=== PATIENT | female | born 1990 | race Asian ===

== ENCOUNTER 2017-11-24 00:28 | Inpatient (IN) | payer SELFPAY ==
[~2017-11-24] VITALS: Ht 154.9 cm; Wt 77.1 kg
[2017-11-24] MEDS ORDERED: LR 500 ML IV ONE (00:55)
[2017-11-24] MEDS ORDERED: LR 1,000 ML IV ONE (00:55)
[2017-11-24] MEDS ORDERED: LR 1,000 ML IV SCH ×2 (00:55→18:38)
[2017-11-24] MEDS ORDERED: OXYTOCIN/NORMAL SALINE 1,000 ML IV SCH (00:55)
[2017-11-24] MEDS ORDERED: NALBUPHINE HCL 10 MG/ML AMP IVP PRN (01:00)
[2017-11-24] MEDS ORDERED: TERBUTALINE SULFATE 1 MG/ML VIAL SUBCUT ONE (01:00)
[2017-11-24 02:20] LABS: HEMOGLOBIN 13.8 g/dL (12.0-16.0); MEAN CORPUSCULAR HEMOGLOBIN 30 pg (27-31); MEAN CORPUSCULAR HGB CONC 34 % (32-36); MEAN CORPUSCULAR VOLUME 90 fL (79.0-98.0)
[2017-11-24 02:22] LABS: EOSINOPHILS # (AUTO) 0.2 K/uL (0.0-0.4); EOSINOPHILS % (AUTO) 1.4 % (0.0-4.0); HEMATOCRIT 41.2 % (36-48); LYMPHOCYTES # (AUTO) 2.2 K/uL (1.0-5.5); LYMPHOCYTES % (AUTO) 18.6 % (20.5-51.5); MONOCYTES # (AUTO) 0.8 K/uL (0.0-1.0); MONOCYTES % (AUTO) 6.8 % (1.7-9.3); NEUTROPHILS # (AUTO) 8.5 K/uL (1.8-7.7); NEUTROPHILS % (AUTO) 73.2 % (40.0-70.0); PLATELET COUNT (AUTO) 312 K/uL (130-430); RED BLOOD CELL COUNT(AUTO) 4.56 MIL/uL (4.2-6.2); WHITE BLOOD COUNT (AUTO) 11.7 K/uL (4.8-10.8)
[2017-11-24 02:48] VITALS: BP_SYST 99
[2017-11-24] MEDS ORDERED: AMPICILLIN SODIUM 2 GM in NS 100 ML IV ONE (06:30)
[2017-11-24] MEDS ORDERED: DINOPROSTONE 10 MG SUPP VG ONE (08:45)
[2017-11-24] MEDS ORDERED: AMPICILLIN SODIUM 1 GM in NS 50 ML IV SCH (10:30)
[2017-11-24] MEDS ORDERED: AMPICILLIN SODIUM 2 GM VIAL ONE (11:56)
[2017-11-24] MEDS ORDERED: AMPICILLIN SODIUM 1 GM VIAL ONE (13:29)
[2017-11-24] MEDS ORDERED: CEFAZOLIN 2 GM IVPB PREMIX 50 ML IV ONE (17:00)
[2017-11-24] MEDS ORDERED: NS IRRIG SOLN 1000 ML IR ONE (17:45)
[2017-11-24] MEDS ORDERED: LR 1,000 ML IV.SOLN IV ONE (17:45)
[2017-11-24] MEDS ORDERED: METHYLERGONOVINE MALEATE 0.2 MG/ML AMP IM ONE (17:45)
[2017-11-24] MEDS ORDERED: BUPIVACAINE /DEX PF 0.75% SPINAL 2 ML AMP INJ ONE (17:45)
[2017-11-24] MEDS ORDERED: OXYTOCIN 10 UNIT/ML VIAL IV ONE (17:45)
[2017-11-24] MEDS ORDERED: ONDANSETRON HCL 4 MG/2 ML VIAL IVP ONE (17:45)
[2017-11-24] MEDS ORDERED: MORPHINE SULFATE 10MG/10ML PF AMP EP ONE (17:45)
[2017-11-24] MEDS ORDERED: OXYTOCIN/NORMAL SALINE 1,000 ML IV ONE ×2 (17:53→18:47)
[2017-11-24] MEDS ORDERED: MEASLES,MUMPS&RUBELLA VACC/PF 12500 UNIT/0.5 ML VIAL SUBQ PRN (18:00)
[2017-11-24] MEDS ORDERED: TEMAZEPAM 15 MG CAPSULE PO PRN (18:00)
[2017-11-24] MEDS ORDERED: DOCUSATE SODIUM 100 MG CAPSULE PO PRN (18:00)
[2017-11-24] MEDS ORDERED: SENNOSIDES/DOCUSATE SODIUM 1 TAB TABLET(SENOKOT-S) PO PRN (18:00)
[2017-11-24] MEDS ORDERED: BISACODYL 10 MG/SUPPOSITORY RC PRN (18:00)
[2017-11-24] MEDS ORDERED: LANOLIN 7 GM OINT. TP PRN (18:00)
[2017-11-24] MEDS ORDERED: ACETAMINOPHEN 325 MG TABLET PO PRN (18:00)
[2017-11-24] MEDS ORDERED: HYDROcodone/ACETAMIN 5-325 MG TAB (NORCO/ VICODIN) PO PRN ×2 (18:00)
[2017-11-24] MEDS ORDERED: RHO(D) IMMUNE GLOBULIN/MALTOSE 1500 UNITS/1.3 ML (WINHRO) IM PRN (18:00)
[2017-11-24] MEDS ORDERED: ANUSOL 1 EA SUPP.RECT (PREPARATION H) RC PRN (18:00)
[2017-11-24] MEDS ORDERED: NALOXONE HCL 1 MG in NACL 0.9% 1,000 ML IV PRN ×4 (18:38)
[2017-11-24] MEDS ORDERED: NALOXONE HCL 0.4 MG/ML AMP (NARCAN) IVP PRN ×3 (18:45)
[2017-11-24] MEDS ORDERED: MEPERIDINE HCL/PF 25 MG/ML DISP.SYRIN IVP PRN ×2 (18:45)
[2017-11-24] MEDS ORDERED: KETOROLAC TROMETHAMINE 60 MG/2 ML VIAL IM PRN (18:45)
[2017-11-24] MEDS ORDERED: HYDROmorphone 2 MG/ML VIAL IVP PRN ×2 (18:45)
[2017-11-24] MEDS ORDERED: DIPHENHYDRAMINE INJ 50 MG/ML VIAL IVP PRN (18:45)
[2017-11-24] MEDS ORDERED: HYDROmorphone 1 MG INJ. 1 MG/ML AMPUL IVP PRN (18:45)
[2017-11-24] MEDS ORDERED: DIPHENHYDRAMINE HCL 50 MG CAPSULE PO PRN (18:45)
[2017-11-24] MEDS ORDERED: ONDANSETRON HCL 4 MG/2 ML VIAL IVP PRN (18:45)
[2017-11-24] MEDS: LR 1,000 ML IV SCH ×2 (21:35→21:37)
[2017-11-24] MEDS: IBUPROFEN 600 MG TABLET PO SCH ×2 (21:36→21:37)
[2017-11-25 03:05] VITALS: BP_SYST 118
[2017-11-25 07:28] LABS: BASOPHILS % (AUTO) 0.3 % (0.0-2.0); EOSINOPHILS % (AUTO) 0.1 % (0.0-4.0); HEMATOCRIT 30.9 % (36-48); HEMOGLOBIN 10.6 g/dL (12.0-16.0); LYMPHOCYTES # (AUTO) 1.2 K/uL (1.0-5.5); LYMPHOCYTES % (AUTO) 8.8 % (20.5-51.5); MEAN CORPUSCULAR HEMOGLOBIN 31 pg (27-31); MEAN CORPUSCULAR HGB CONC 34 % (32-36); MEAN CORPUSCULAR VOLUME 91 fL (79.0-98.0); MONOCYTES # (AUTO) 0.7 K/uL (0.0-1.0); MONOCYTES % (AUTO) 5.1 % (1.7-9.3); NEUTROPHILS # (AUTO) 11.6 K/uL (1.8-7.7); NEUTROPHILS % (AUTO) 85.7 % (40.0-70.0); PLATELET COUNT (AUTO) 214 K/uL (130-430); RED BLOOD CELL COUNT(AUTO) 3.42 MIL/uL (4.2-6.2); RED CELL DISTRIBUTION WIDTH 12.2 % (9.0-15.0); WHITE BLOOD COUNT (AUTO) 13.5 K/uL (4.8-10.8)
[2017-11-25] MEDS ORDERED: MILK OF MAGNESIA 30 ML UDC PO PRN (09:00)
[2017-11-25] MEDS: SIMETHICONE 80 MG TAB.CHEW PO PRN ×2 (09:36→23:59)
[2017-11-25] MEDS: IBUPROFEN 600 MG TABLET PO SCH ×3 (11:35→23:58)
[2017-11-26] MEDS: IBUPROFEN 600 MG TABLET PO SCH ×3 (05:40→18:38)
[2017-11-26] MEDS: LR 1,000 ML IV SCH (12:48)
[2017-11-27] MEDS: IBUPROFEN 600 MG TABLET PO SCH ×3 (00:01→13:22)
[2017-11-27] MEDS ORDERED: DIPH-TET-PERTUS Vaccine 0.5 ML VIAL (ADACEL) I.M. ONE (09:30)
== END 2017-11-27 14:25 | disposition home or self-care (01) | DRG 766 ==
LOC: SPU 00:28
PROVIDERS: ADMIT Obstetrics & Gynecology; ATTEND Obstetrics & Gynecology
PROC: 10D00Z1 Extraction of Products of Conception, Low, Open Approach (ICD-10-PCS; principal; 2017-11-24 17:30)
DX: O42.92 Full-term premature rupture of membranes, unspecified as to length of time between rupture and onset of labor (principal); O62.0 Primary inadequate contractions; Z37.0 Single live birth; Z3A.40 40 weeks gestation of pregnancy
CPT/HCPCS: 36415; 81002-TC; 85025; 86592; 86886; 86900; 86901; 87536; 90715; 94760; J0290; J0690; J2210; J2274; J2300; J2405; J2590; J3490; J7120